=== PATIENT | female | born 1995 | race Hispanic/Latino ===

== ENCOUNTER 2019-01-21 08:27 | Emergency (ER) | payer MEDICAID, SELFPAY ==
[2019-01-21] MEDS ORDERED: Promethazine HCl 25 MG/ML VIAL ONE (08:49)
[2019-01-21 09:10] LABS: #Lymphocytes 0.7 thou/uL (1.20-3.40); #Monocytes 0.3 thou/uL (0.11-0.59); #Neutrophils 7.9 thou/uL (1.40-6.50); %Basophils 0.1 % (0.0-1.0); %Eosinophils 0.3 % (0.0-10.0); %Lymphocytes 8.3 % (21.0-51.0); %Monocytes 2.9 % (0.0-10.0); %Neutrophils 88.4 % (42.0-75.0); Hemoglobin 12.7 g/dL (12.0-16.0); Mean Corpuscular HGB CONC 33.4 g/dL (32.0-36.0); Mean Corpuscular Hemoglobin 26.8 pg (27.0-31.0); Mean Corpuscular Volume 80.3 fL (78.0-98.0); Mean Platelet Volume 7.8 fL (7.4-10.4); Platelet Count 269 thou/uL (130-400); RBC Distribution Width 14.1 % (11.5-14.5); Red Blood Cell (RBC) Count 4.74 mill/uL (4.20-5.40); White Blood Cell (WBC) Count 8.9 thou/uL (4.8-10.8)
[2019-01-21 09:27] LABS: ALT (SGPT) 12 U/L (8-55); AST (SGOT) 19 U/L (5-34); Albumin 4.1 g/dL (3.5-5.0); Alkaline Phosphatase 81 U/L (40-150); Anion Gap 12 mmol/L (10-20); BUN (Urea Nitrogen) 10 mg/dL (7.0-18.7); Bilirubin, Total 0.5 mg/dL (0.2-1.2); Calc. Creatinine Clearance 0 mL/min (70-130); Calcium 9.3 mg/dL (7.8-10.44); Carbon Dioxide 20 mmol/L (22-29); Chloride 104 mmol/L (98-107); Estimated GFR-MDRD Greater than 90; Globulin 3.5 g/dL (2.4-3.5); Glucose 68 mg/dL (70-105); Potassium 3.4 mmol/L (3.5-5.1); Protein, Total 7.6 g/dL (6.0-8.3); Sodium 133 mmol/L (136-145)
[2019-01-21 10:59] LABS: Bilirubin Negative (Negative); Blood, Urine Negative (Negative); Clarity Clear (Clear); Glucose, Urine (Dipstick) Normal (Negative); Leukocyte 25 Leu/uL (Negative); Nitrite Negative (Negative); Protein, Urine (Dipstick) Negative (Neg-Trace); Squamous Epithelial 0-3 HPF (0-3); Urobilinogen Normal mg/dL (Less than 2)
[2019-01-21 11:01] LABS: Bacteria/HPF 1+ HPF (None Seen)
== END 2019-01-21 11:09 | disposition home or self-care (01) ==
LOC: ERS 08:27
DX: O21.9 Vomiting of pregnancy, unspecified (principal); O99.89 Other specified diseases and conditions complicating pregnancy, childbirth and the puerperium; R19.7 Diarrhea, unspecified; O99.011 Anemia complicating pregnancy, first trimester; Z3A.09 9 weeks gestation of pregnancy
CPT/HCPCS: 36415; 80053; 81003; 81015; 85025; 96365; J2550

== ENCOUNTER 2019-04-13 08:11 | Outpatient (CLI) | payer OTHER ==
--- NOTE | 2019-04-13 09:21 | ULT ---
EXAM: OB ultrasound COMPARISON: None HISTORY: female. Evaluate size, dates, and anatomy. TECHNIQUE: Multiplanar grayscale and color Doppler transabdominal sonographic images are obtained. FINDINGS: There is a single intrauterine gestation in variable but predominantly breech presentation. Cardiac Doppler demonstrates heart tones with a heart rate of 149 beats per minute. The placenta is located anteriorly without evidence of placenta previa. There is a normal amount of a mniotic fluid with an amniotic fluid index of 12.19 centimeters. The cervical length based on transabdominal imaging measures 3.4 centimeters. biometry measurements: BPD 4.66 cm -- 20 weeks 1 day HC 18.17 cm -- 20 weeks 5 days AC 15.81 cm -- 21 weeks FL 3.19 cm -- 20 weeks The estimated gestational age by ultrasound is 20 weeks 4 days with an FABY on08/27/2019. Gestational ag e by the last menstrual period is 20 weeks 5 days. The estimated weight by ultrasound is 356 g (13 ounces). This represents 32 percentile for feta l weight. A 4 chambered heart is visualized. The cerebellum, visualized portions of the spine, kidneys, u rinary bladder, and cord insertion demonstrate a normal sonographic appearance. There is suggestion of a three-vessel cord. No anomalies are seen. IMPRESSION: 1. Single intrauterine gestation in variable but predominantly in breech presentation with hear t tones documented. Estimated gestational age by ultrasound is 20 weeks 4 days. 2. Estimated weight is 356 g (13 ounces). 3. Amniotic fluid index is 12.19 centimeters.
== END 2019-04-13 08:12 | disposition home or self-care (01) ==
LOC: BICULT 08:11
PROVIDERS: ATTEND Family Medicine
DX: Z34.02 Encounter for supervision of normal first pregnancy, second trimester (principal); Z3A.20 20 weeks gestation of pregnancy
CPT/HCPCS: 76805

== ENCOUNTER 2019-07-06 14:22 | Day surgery (SDC) | payer OTHER ==
[2019-07-06] MEDS ORDERED: Ondansetron PF 4 MG/2 ML Vial IVP SCH (15:00)
[2019-07-06] MEDS ORDERED: Lactated Ringer's 1,000 ML IV SCH (15:00)
[2019-07-06 15:51] LABS: Bacteria/HPF None Seen HPF (None Seen); Bilirubin Negative (Negative); Blood, Urine Negative (Negative); Clarity Clear (Clear); Glucose, Urine (Dipstick) Normal (Negative); Leukocyte Negative Leu/uL (Negative); Nitrite Negative (Negative); Protein, Urine (Dipstick) Negative (Neg-Trace); RBC/HPF 0-3 HPF (0-3); Squamous Epithelial 0-3 HPF (0-3); Urobilinogen Normal mg/dL (Less than 2); WBC/HPF 0-3 HPF (0-3)
[2019-07-06 16:17] VITALS: BMI 28.2
[2019-07-06 16:23] LABS: FFN Internal QC Analyzer PASS (PASS); FFN Internal QC Cassette PASS (PASS); Fetal Fibronectin Negative (Negative)
[2019-07-06] MEDS ORDERED: hydrALAZINE 20 MG/ML VIAL SLOW IVP PRN (17:10)
--- NOTE | 2019-07-07 06:09 | PRG ---
DATE OF SERVICE: 07/06/2019 PRIMARY OB: Bennie Santana MD CHIEF COMPLAINT: Nausea, vomiting, and abdominal pain. HISTORY OF PRESENT ILLNESS: The patient is a 23-year-old G1, P0 female with an intrauterine at 32 weeks and 5 days, presenting to Labor and Delivery experiencing right lower quadrant abdominal pain and nausea and vomiting that began after playing with her nephew this morning. She reports that she had been lifting him up, playing with a balloon with him, at some point after that she started having sharp pains that she reports would come and go, focused in her right lower quadrant. She also reports that she has some lower back pain, that has been there for a while, worse with activity and movement. She also reports that she has had increased discharge for the last week, that has not had any change in odor, but that is staining her thin panty liner more than usual. She denies intercourse since early in the . She denies any recent illness, fever, fall, headache, chest pain or shortness of breath. She has had nausea and vomiting today on several occasions that she reports from the pain that she had been experiencing. She denies any sick contacts. She denies any new rashes, hip problems, knee problems, muscle weakness. Denies vaginal bleeding or urinary urgency or frequency. PAST MEDICAL HISTORY: Negative. PAST SURGICAL HISTORY: Negative. ALLERGIES: NO KNOWN DRUG ALLERGIES. MEDICATIONS: 1. vitamins. 2. Iron. REVIEW OF SYSTEMS: Per HPI. OB LABS: Blood type is O positive. Antibody screen is negative. RPR is nonreactive in the first and third trimester. HIV is nonreactive in the first and third trimester. Hepatitis B surface antigen is negative. She is rubella immune. UDS is negative. PHYSICAL EXAMINATION: VITAL SIGNS: Blood pressure 118/72, heart rate 100, saturating 100% on room air, and respiratory rate 18. GENERAL: She appears to be in no acute distress. She is alert, oriented, cooperative, and pleasant to interact with. HEENT: Head is normocephalic and atraumatic. LUNGS: Clear to auscultation bilaterally. HEART: Regular rate and rhythm. ABDOMEN: Gravid and soft. Difficult to reproduce the pain that she is having, though she while talking is holding her lower abdomen. She has no suprapubic tenderness. She has no CVA tenderness. No paravertebral tenderness. She has some mild SI joint tenderness. EXTREMITIES: Nontender and nonedematous. VULVA: Without masses, lesions or erythema. : Very difficult as the patient did not tolerate it well. With some care and with the cooperation of the patient, a speculum was placed. The fibronectin and VPIII were collected. The patient was asked to bear down. There was no pulling present. Discharge did not appear that unusual. The vaginal boyer were not discolored and did not appear erythematous or irritated. Cervical exam was unable to perform due to the patient's tolerance. On sterile speculum exam, cervix is visibly closed. heart tracing shows fetus with a baseline in the 140s with moderate long-term variability, positive 15 x 15 accelerations, no decelerations. Tocometer does not show any evidence of contractions. LABORATORY DATA: Urinalysis shows negative for ketones, nitrites, leukocyte esterase, white blood cells, and bacteria. fibronectin is negative. VPIII is also negative for Gardnerella, yeast and Trichomonas. ASSESSMENT AND PLAN: The patient is a 23-year-old G1, P0 female with an intrauterine at 32 weeks and 5 days, who is presenting with nausea, vomiting, and abdominal pain. She has no evidence of infection, though empirically I am asking her to use Monistat for the next 7 days as this may explain why the vaginal skin is so tender to touch. She has no evidence of labor on exam by heart tracing and a negative fibronectin. Urinalysis shows no evidence of infection, and she has no reproducible pain on deep palpation suggesting an appendicitis. Given the timing of the onset of this pain, this seems to be musculoskeletal in nature as this came on after playing with her nephew. She has been discharged home with reassurance and has an appointment to see her primary OB, Dr. Santana, in 2 weeks. Fetus has a category 1 tracing and reactive NST. The patient has been given labor precautions. Job ID: [id number]
== END 2019-07-06 17:00 | disposition home health service (06) ==
LOC: L&D/OP 14:22
PROVIDERS: ATTEND Family Medicine
DX: O21.2 Late vomiting of pregnancy (principal); O99.89 Other specified diseases and conditions complicating pregnancy, childbirth and the puerperium; R10.31 Right lower quadrant pain; Z3A.32 32 weeks gestation of pregnancy; Z79.899 Other long term (current) drug therapy
CPT/HCPCS: 81001; 82731; 87480; 87510; 87660; 96360; 99285

== ENCOUNTER 2019-08-19 00:56 | Inpatient (IN) | payer OTHER ==
[2019-08-19 01:22] VITALS: BMI 33.1
[2019-08-19] MEDS ORDERED: hydrALAZINE 20 MG/ML VIAL SLOW IVP PRN ×2 (02:53→10:02)
[2019-08-19] MEDS ORDERED: NS / Oxytocin 40 units/1000ml 1,000 ML IV PRN (02:53)
[2019-08-19] MEDS ORDERED: Ibuprofen 800 MG TAB PO PRN (02:53)
[2019-08-19] MEDS ORDERED: Butorphanol Tartrate 1 MG/ML VIAL SLOW IVP PRN (02:53)
[2019-08-19] MEDS ORDERED: Promethazine HCl 25 MG/ML VIAL IM PRN ×3 (02:53→10:02)
[2019-08-19] MEDS ORDERED: Ondansetron PF 4 MG/2 ML Vial IVP PRN ×3 (02:53→10:02)
[2019-08-19] MEDS ORDERED: Lidocaine 1% (PF) 30 ML VIAL SC PRN (02:53)
[2019-08-19] MEDS ORDERED: HYDROcodone/Acetaminophen 5/325 mg Tablet PO PRN ×2 (02:53→10:02)
[2019-08-19] MEDS ORDERED: Lactated Ringer's 1,000 ML IV SCH (03:00)
[2019-08-19 03:21] LABS: Hemoglobin 13.3 g/dL (12.0-16.0); Mean Corpuscular HGB CONC 33.9 g/dL (32.0-36.0); Mean Corpuscular Hemoglobin 28.8 pg (27.0-31.0); Mean Corpuscular Volume 84.9 fL (78.0-98.0); Platelet Count 217 thou/uL (130-400); RBC Distribution Width 17.5 % (11.5-14.5); Red Blood Cell (RBC) Count 4.61 mill/uL (4.20-5.40)
[2019-08-19] MEDS ORDERED: Fentanyl 4 mcg/Bup 0.1% Cadd 100 ML ONE (03:30)
[2019-08-19] MEDS: Lactated Ringer's 1,000 ML IV SCH ×2 (03:30→08:15)
[2019-08-19 04:02] LABS: HBSAg Index 0.21 S/CO (0-0.99); Hep B Surf Ag Non-Reactive S/CO (NonReactive)
[2019-08-19] MEDS ORDERED: diphenhydrAMINE 50 MG/ML VIAL IVP PRN (04:31)
[2019-08-19] MEDS ORDERED: Acetaminophen 325 MG TAB PO PRN (04:31)
[2019-08-19] MEDS ORDERED: EPHEDRINE 25 MG/5 ML SYRINGE SLOW IVP PRN (04:31)
[2019-08-19] MEDS ORDERED: Naloxone HCl 0.4 mg/ml Vial IVP PRN ×2 (04:31)
[2019-08-19] MEDS ORDERED: Lactated Ringer's 500 ML IV PRN (04:31)
[2019-08-19] MEDS ORDERED: Fentanyl 4 mcg/Bupivacaine 0.1% Cassette 100 ML EPIDURAL SCH (04:45)
[2019-08-19] MEDS ORDERED: Communication Order-Pharmacy FS SCH (04:45)
[2019-08-19 05:00] LABS: Syphilis Antibody Nonreactive (Nonreactive); Syphilis Antibody Index 0.03 S/CO (<1.00 Non-Reactive)
[2019-08-19] MEDS: NS / Oxytocin 40 units/1000ml 1,000 ML IV SCH ×2 (09:27→11:19)
[2019-08-19] MEDS ORDERED: Bupivacaine 0.25% HCL 30 ML VIAL ONE (09:28)
[2019-08-19] MEDS ORDERED: Milk Of Magnesia 30 ML UDCUP PO PRN (10:02)
[2019-08-19] MEDS ORDERED: Adacel (T-DAP) 0.5 ML SYRINGE IM ONE (10:02)
[2019-08-19] MEDS ORDERED: diphenhydrAMINE 25 MG CAP PO PRN (10:02)
[2019-08-19] MEDS ORDERED: Bisacodyl 10 MG SUPP PR PRN (10:02)
[2019-08-19] MEDS ORDERED: Lanolin Ointment 7 GM TUBE TOP PRN (10:02)
[2019-08-19] MEDS: Ibuprofen 800 MG TAB PO SCH ×2 (10:32→20:36)
[2019-08-19] MEDS: Ferrous Sulfate 325 MG TAB PO SCH (15:26)
[2019-08-19] MEDS: HYDROcodone/Acetaminophen 5/325 mg Tablet PO PRN ×2 (16:02→20:35)
[2019-08-19] MEDS ORDERED: Sodium Chloride 0.9% 10 ML ONE (16:47)
[2019-08-19] MEDS: Docusate Calcium (SURFAK) 240 MG CAP PO SCH (20:36)
[2019-08-20 05:40] LABS: Hemoglobin 11.8 g/dL (12.0-16.0); Mean Corpuscular HGB CONC 33.8 g/dL (32.0-36.0); Mean Corpuscular Hemoglobin 29.3 pg (27.0-31.0); Mean Corpuscular Volume 86.8 fL (78.0-98.0); Mean Platelet Volume 8.7 fL (7.4-10.4); Platelet Count 170 thou/uL (130-400); RBC Distribution Width 17.5 % (11.5-14.5); Red Blood Cell (RBC) Count 4.02 mill/uL (4.20-5.40); White Blood Cell (WBC) Count 12.8 thou/uL (4.8-10.8)
[2019-08-20] MEDS: Ibuprofen 800 MG TAB PO SCH ×3 (06:50→20:07)
[2019-08-20] MEDS: Docusate Calcium (SURFAK) 240 MG CAP PO SCH ×2 (09:22→20:07)
[2019-08-20] MEDS: Prenatal Vitamin 1 TAB PO SCH (09:23)
[2019-08-20] MEDS: Ferrous Sulfate 325 MG TAB PO SCH ×2 (09:23→18:28)
[2019-08-21] MEDS: Ibuprofen 800 MG TAB PO SCH ×2 (06:21→13:34)
[2019-08-21 08:07] VITALS: BP 126/81; TEMP 97.7
[2019-08-21] MEDS: Prenatal Vitamin 1 TAB PO SCH (09:06)
[2019-08-21] MEDS: Docusate Calcium (SURFAK) 240 MG CAP PO SCH (09:06)
[2019-08-21] MEDS: Ferrous Sulfate 325 MG TAB PO SCH (09:07)
[2019-08-21] MEDS ORDERED: Sodium Chloride 0.9% 0 ML ONE (15:21)
== END 2019-08-21 16:51 | disposition home or self-care (01) | DRG 807 ==
LOC: L&D/OP 00:56 → L&D 02:53 → 3SE 11:29
PROVIDERS: ADMIT Family Medicine; ATTEND Family Medicine
PROC: 10E0XZZ Delivery of Products of Conception, External Approach (ICD-10-PCS; principal; 2019-08-19)
PROC: 0HQ9XZZ Repair Perineum Skin, External Approach (ICD-10-PCS; 2019-08-19)
PROC: 10907ZC Drainage of Amniotic Fluid, Therapeutic from Products of Conception, Via Natural or Artificial Opening (ICD-10-PCS; 2019-08-19)
DX: O76 Abnormality in fetal heart rate and rhythm complicating labor and delivery (principal); Z37.0 Single live birth; Z3A.39 39 weeks gestation of pregnancy; O70.0 First degree perineal laceration during delivery
CPT/HCPCS: 36415; 51702; 85027; 86780; 86850; 86900; 86901; 87340; 99285; S0020

== ENCOUNTER 2020-05-31 04:09 | Emergency (ER) | payer OTHER ==
[2020-05-31] MEDS ORDERED: Acetaminophen 500 MG TAB ONE (04:50)
--- NOTE | 2020-05-31 07:40 | RAD ---
RADIOGRAPH CHEST 1 VIEW: DATE: 05/31/2020 HISTORY: 24-year-old female with chest pain and dyspnea FINDINGS: The visualized lung sargent are clear. The cardiomediastinal silhouette and hilar shadows are normal. The lateral costophrenic angles are sharp. The osseous structures appear normal. There is no pneumothorax. IMPRESSION: Negative.
--- NOTE | 2020-06-04 10:33 | EKG ---
Test Reason : Blood Pressure : / mmHG Vent. Rate : 092 BPM Atrial Rate : 092 BPM P-R Int : 124 ms QRS Dur : 076 ms QT Int : 348 ms P-R-T Axes : 043 036 049 degrees QTc Int : 430 ms Normal sinus rhythm Normal ECG Confirmed by ANA SHER M.D. ([id number]), newspaper editor managing SHAR AUGUSTIN ([id number]) on 06/04/2020 10:33:12 AM Referred By: Confirmed By:ANA SHER M.D.
== END 2020-05-31 04:51 | disposition home or self-care (01) ==
LOC: ERS 04:09
DX: S29.011A Strain of muscle and tendon of front wall of thorax, initial encounter (principal); D64.9 Anemia, unspecified; X50.1XXA Overexertion from prolonged static or awkward postures, initial encounter
CPT/HCPCS: 71045; 93005

== ENCOUNTER 2020-09-01 16:58 | Emergency (ER) | payer OTHER | END 2020-09-01 17:30 | disposition home or self-care (01) | LOC: ERS 16:58 | DX: Z32.01 Encounter for pregnancy test, result positive (principal) | CPT/HCPCS: 99281 ==

== ENCOUNTER 2022-09-24 13:41 | Emergency (ER) | payer OTHER ==
[2022-09-24] MEDS ORDERED: Ketorolac Tromethamine 30 MG/ML VIAL ONE (13:55)
[2022-09-24 14:16] LABS: #Eosinphils 0.1 thou/uL (0.0-0.7); #Monocytes 0.6 thou/uL (0.11-0.59); #Neutrophils 9.9 thou/uL (1.40-6.50); %Basophils 0.1 % (0.0-1.0); %Eosinophils 0.9 % (0.0-10.0); %Lymphocytes 20.8 % (21.0-51.0); %Monocytes 4.2 % (0.0-10.0); %Neutrophils 73.7 % (42.0-75.0); Hemoglobin 13.7 g/dL (12.0-16.0); Mean Corpuscular HGB CONC 32.5 g/dL (32.0-36.0); Mean Corpuscular Volume 86.3 fl (78.0-98.0); Mean Platelet Volume 9.6 fL (7.4-10.4); Platelet Count 416 10x3/uL (130-400); RBC Distribution Width 13.5 % (11.5-14.5); Red Blood Cell (RBC) Count 4.89 mill/uL (4.20-5.40); White Blood Cell (WBC) Count 13.5 10x3/uL (4.8-10.8)
[2022-09-24 14:25] LABS: BHCG - Serum POSITIVE (NEGATIVE); Pregs Control Background? CLEAR/WHITE (CLR/WHITE); Pregs Control Bar Appear? YES (CONTROL BAR)
[2022-09-24 14:46] LABS: ALT (SGPT) 27 U/L (8-55); AST (SGOT) 22 U/L (5-34); Albumin 4.5 g/dL (3.5-5.0); Alkaline Phosphatase 131 U/L (40-110); Anion Gap 17 mmol/L (10-20); BUN (Urea Nitrogen) 9 mg/dL (7.0-18.7); Bilirubin, Total 0.2 mg/dL (0.2-1.2); Calc. Creatinine Clearance 0 mL/min (70-130); Calcium 9.5 mg/dL (7.8-10.44); Carbon Dioxide 20 mmol/L (22-29); Chloride 103 mmol/L (98-107); Estimated GFR 121; Globulin 4.2 g/dL (2.4-3.5); Glucose 93 mg/dL (70-105); Lipase 21 U/L (8-78); Potassium 3.4 mmol/L (3.5-5.1); Protein, Total 8.7 g/dL (6.0-8.3); Sodium 137 mmol/L (136-145)
[2022-09-24] MEDS ORDERED: LORazepam 2 MG/ML SYR.(CARPUJECT) ONE (16:23)
== END 2022-09-24 16:49 | disposition home or self-care (01) ==
LOC: ERS 13:41
DX: O03.9 Complete or unspecified spontaneous abortion without complication (principal); Z3A.01 Less than 8 weeks gestation of pregnancy
CPT/HCPCS: 36415; 76856; 80053; 83690; 84702; 84703; 85025; 86900; 86901; 96361; 96374; 96375; J1885; J2060

== ENCOUNTER 2023-10-15 08:46 | Emergency (ER) | payer OTHER | END 2023-10-15 11:19 | disposition left against medical advice (07) | LOC: ERS 08:46 | DX: Z53.21 Procedure and treatment not carried out due to patient leaving prior to being seen by health care provider (principal) ==

== ENCOUNTER 2023-12-07 10:02 | Emergency (ER) | payer OTHER ==
[2023-12-07 10:53] LABS: #Basophils Less than 0.03 10x3/uL (0.0-0.2); #Eosinphils Less than 0.03 10x3/uL (0.0-0.7); %Basophils 0.1 % (0.0-1.0); %Eosinophils 0.2 % (0.0-10.0); %Lymphocytes 10.5 % (21.0-51.0); %Monocytes 7.1 % (0.0-10.0); %Neutrophils 81.6 % (42.0-75.0); Hematocrit 28.2 % (36.0-47.0); Hemoglobin 8.4 g/dL (12.0-16.0); Mean Corpuscular HGB CONC 29.8 g/dL (32.0-36.0); Mean Corpuscular Hemoglobin 20.3 pg (27.0-31.0); Mean Corpuscular Volume 68.1 fL (78.0-98.0); Mean Platelet Volume 9.8 fL (7.4-10.4); Platelet Count 273 10x3/uL (130-400); RBC Distribution Width 15.8 % (11.5-14.5); Red Blood Cell (RBC) Count 4.14 mill/uL (4.20-5.40)
[2023-12-07 11:04] LABS: ALT (SGPT) 9 U/L (8-55); AST (SGOT) 14 U/L (5-34); Albumin 2.4 g/dL (3.5-5.0); Alkaline Phosphatase 160 U/L (40-110); Anion Gap 11 mmol/L (10-20); BUN (Urea Nitrogen) 4 mg/dL (7.0-18.7); Bilirubin, Total 0.4 mg/dL (0.2-1.2); Calc. Creatinine Clearance 0 mL/min (70-130); Calcium 8.5 mg/dL (7.8-10.44); Carbon Dioxide 17 mmol/L (22-29); Chloride 108 mmol/L (98-107); Estimated GFR 131; Globulin 4.2 g/dL (2.4-3.5); Glucose 74 mg/dL (70-105); Potassium 3.5 mmol/L (3.5-5.1); Protein, Total 6.6 g/dL (6.0-8.3); Sodium 132 mmol/L (136-145)
[2023-12-07 11:09] LABS: Bilirubin Negative (Negative); Blood, Urine Negative (Negative); CAUTI Indications for Culture Pregnancy; Clarity Turbid (Clear); Glucose, Urine (Dipstick) Normal (Negative); Ketone, Urine 20 mg/dL (Negative); Leukocyte 25 Leu/uL (Negative); Nitrite Negative (Negative); Protein, Urine (Dipstick) 10 mg/dL (Neg-Trace); RBC/HPF 0-3 HPF (0-3); Specific Gravity, Urine 1.016 (1.002-1.036); Urobilinogen Normal mg/dL (Less than 2); WBC/HPF 0-3 HPF (0-3)
[2023-12-07 11:10] LABS: Bacteria/HPF Rare-Few HPF (None Seen)
[2023-12-07 11:11] LABS: Urine Culture Reflex Yes Yes
[2023-12-07 11:20] LABS: Anisocytosis SLIGHT = 6-15 cells HPF (0-5); Hypochromia SLIGHT = 6-15 cells HPF (0-5); Microcytosis SLIGHT = 6-15 cells HPF (0-5); Platelet Adequacy Comment Platelets Normal; Poikilocytosis SLIGHT = 6-15 cells HPF (0-5); Polychromasia SLIGHT = 2-3 cells HPF (0-2); Tear Drops SLIGHT = 2-5 cells HPF (0-1)
== END 2023-12-07 12:22 | disposition home or self-care (01) ==
LOC: ERS 10:02
DX: O99.891 Other specified diseases and conditions complicating pregnancy (principal); J02.9 Acute pharyngitis, unspecified; M54.50 Low back pain, unspecified; R82.71 Bacteriuria; M79.662 Pain in left lower leg; M79.661 Pain in right lower leg; O99.013 Anemia complicating pregnancy, third trimester; Z3A.31 31 weeks gestation of pregnancy
CPT/HCPCS: 36415; 80053; 81001; 85025; 87081; 87086; 87430; 93970

== ENCOUNTER 2023-12-10 13:48 | Day surgery (SDC) | payer OTHER ==
[~2023-12-10 13:48] MED LIST: Acetaminophen 325 MG TAB PO PRN; Ferumoxytol (NON ERSD) 510 MG in Sodium Chloride 0.9% 250 ML 150 ML IVPB SCH; diphenhydrAMINE 25 MG CAP PO PRN
[2023-12-10] MEDS: Ferumoxytol (NON ERSD) 510 MG in 0.9 % Sodium Chloride 150 ML IVPB SCH (14:14)
[2023-12-10 14:40] VITALS: BP 112/63; TEMP 98
== END 2023-12-10 16:02 | disposition home or self-care (01) ==
LOC: ONC/OP 13:48
PROVIDERS: ATTEND Student in an Organized Health Care Education/Training Program
DX: D50.9 Iron deficiency anemia, unspecified (principal)
CPT/HCPCS: 96365; Q0138